=== PATIENT | female | born 1980 | race Caucasian/White ===

== ENCOUNTER → 2017-10-24 | Outpatient (CLI) | payer OTHER ==
[2017-10-24 11:20] LABS: Basophils # (A) 0.1 k/uL (0-0.2); Basophils % (A) 1 %; Eosinophils # (A) 0.2 k/uL (0-0.7); Eosinophils % (A) 3 %; HCT 38.7 % (34.0-46.0); HGB 12.3 gm/dL (11.4-16.0); Lymphocytes # (A) 1.9 k/uL (1.0-4.8); Lymphocytes % (A) 24 %; MCH 29.6 pg (25.0-35.0); MCHC 31.9 g/dL (31.0-37.0); MCV 92.7 fL (80.0-100.0); Mean Platelet Volume 6.4; Monocytes # (A) 0.5 k/uL (0-1.0); Monocytes % (A) 7 %; Neutrophils # (A) 5.2 k/uL (1.3-7.7); Neutrophils % (A) 65 %; Platelet Count 279 k/uL (150-450); RBC 4.18 m/uL (3.80-5.40); RDW 12.5 % (11.5-15.5)
[2017-10-24 11:26] LABS: ALT 29 U/L (9-52); AST 20 U/L (14-36); Albumin 4.3 g/dL (3.5-5.0); Alkaline Phosphatase 40 U/L (38-126); Anion Gap 10 mmol/L; Blood Urea Nitrogen 7 mg/dL (7-17); Calcium 9.6 mg/dL (8.4-10.2); Carbon Dioxide 31 mmol/L (22-30); Chloride 102 mmol/L (98-107); Cholesterol 176 mg/dL (<200); Creatine Kinase 53 U/L (30-135); Glucose 89 mg/dL (74-99); HDL Cholesterol 39 mg/dL (40-60); LDL Cholesterol,Calculated 120 mg/dL (0-99); Potassium 4.2 mmol/L (3.5-5.1); Sodium 143 mmol/L (137-145); Total Bilirubin 0.6 mg/dL (0.2-1.3); Total Protein 7.1 g/dL (6.3-8.2); Triglycerides 83 mg/dL (<150)
[2017-10-24 11:40] LABS: T4, Free (Free Thyroxine) 0.94 ng/dL (0.78-2.19)
[2017-10-24 15:26] LABS: Vitamin D 25 Hydroxy 32.4 ng/mL (30.0-100.0)
== END | disposition home or self-care (01) ==
LOC: LABWHC1 10:36
PROVIDERS: ATTEND Family Medicine
DX: Z00.00 Encounter for general adult medical examination without abnormal findings (principal); E55.9 Vitamin D deficiency, unspecified; M70.61 Trochanteric bursitis, right hip; Z13.220 Encounter for screening for lipoid disorders; Z68.22 Body mass index [BMI] 22.0-22.9, adult
CPT/HCPCS: 36415; 80053; 80061; 82306; 82550; 82607; 84439; 84443; 85025

== ENCOUNTER → 2018-01-17 | Outpatient (CLI) | payer OTHER ==
--- NOTE | 2018-01-18 08:45 | MM ---
Reason for exam: additional evaluation requested from prior study. Last mammogram was performed 1 year and 4 months ago. History: Patient history of other cancer. Family history of breast cancer in mother at age 63. Took hormonal contraceptives for 1 year beginning at age 36. Physical Findings: Nurse Summary: less than 0.5cm nodule in the left breast at 2 o'clock (nurse kp). MG 3D Diag Mammo W/Cad SANDRINE Bilateral CC and MLO view(s) were taken. Prior study comparison: September 09, 2016, bilateral MG screening mammo w CAD. July 01, 2015, bilateral MG screening mammo w CAD. The breast tissue is heterogeneously dense. This may lower the sensitivity of mammography. There is a left breast retroareolar low density mass, 6mm. No suspicious abnormality in the right breast. These results were verbally communicated with the patient and result sheet given to the patient on 01/17/18. ASSESSMENT: Incomplete: need additional imaging evaluation, BI-RAD 0 RECOMMENDATION: Ultrasound of the left breast.
--- NOTE | 2018-01-18 08:47 | USB ---
Reason for exam: additional evaluation requested from abnormal screening. History: Patient history of other cancer. Family history of breast cancer in mother at age 63. Took hormonal contraceptives for 1 year beginning at age 36. US Breast LT Left complete breast ultrasound includes all four quadrants, the retroareolar region and axilla. Finding demonstrates a 0.3 x 0.2 x 0.3cm cystic lesion at 2 o'clock corresponds to mammographic finding and a 0.3 x 0.3 x 0.3cm cystic lesion at 2 o'clock increased through transmission, anechoic. These results were verbally communicated with the patient and result sheet given to the patient on 01/17/18. ASSESSMENT: Benign, BI-RAD 2 RECOMMENDATION: Routine screening mammogram of both breasts in 1 year.
== END | disposition home or self-care (01) ==
LOC: RADMAMWWP 13:40
PROVIDERS: ATTEND Family Medicine
DX: N63.20 Unspecified lump in the left breast, unspecified quadrant (principal)
CPT/HCPCS: 77066; 76641; G0279; 77062

== ENCOUNTER → 2018-02-26 | Outpatient (CLI) | payer OTHER ==
--- NOTE | 2018-02-27 06:14 | CT ---
EXAMINATION TYPE: CT abdomen pelvis w con DATE OF EXAM: 02/26/2018 HISTORY: Patient complains of LUQ pain and bilateral posterior pelvic pain per patient. Irritable bow el syndrome with constipation per order CT DLP: 820mGycm Automated Exposure Control for Dose Reduction was Utilized. CONTRAST: CT scan of the abdomen and pelvis is performed with IV Contrast, patient injected with 100 mL of Isov ue 300. COMPARISON: None. FINDINGS: LUNG BASES: No significant abnormality is appreciated. LIVER/GB: Liver is upper limits of normal in size. PANCREAS: No significant abnormality is seen. SPLEEN: No significant abnormality is seen. ADRENALS: No significant abnormality is seen. KIDNEYS: There is circumaortic left renal vein which is normal variant. BOWEL: Oral contrast reaches level of the mid to distal transverse colon. Patient has very little int ra-abdominal fat making evaluation suboptimal. There is no suspicious small or large bowel dilatation . No areas of abnormal wall thickening or clearly seen. Slightly low-lying cecum into right pelvis is present. UTERUS/ADNEXA: There is heterogeneous anteverted uterus. Posterior to uterus right ovary there is 3.7 x 3.3 cm oval well-defined low dense lesion favoring simple ovarian cyst. This can be better evaluat ed with pelvic ultrasound if desired. Scattered pelvic phleboliths are present. Left ovary is not enl arged on axial image 63. LYMPH NODES: No greater than 1cm abdominal or pelvic lymph nodes are appreciated. OSSEOUS STRUCTURES: Small posterior disc herniations are seen in L3-L4 through the L5-S1 levels on sa gittal image 29 there is mild to moderate disc space narrowing L5-S1 level. There is prominent Schmor l node anterior superior endplate. OTHER: No significant additional abnormality is seen. IMPRESSION: 1. No bowel obstruction is seen. No significant acute finding is seen to account for patient's clinic al symptoms. No obvious colitis. 2. Incidental 3.7 cm right ovarian lesion favoring simple cyst, consider pelvic ultrasound to further evaluate and characterize.
== END | disposition home or self-care (01) ==
LOC: RADCTMAIN 17:47
PROVIDERS: ATTEND Family Medicine
DX: K58.1 Irritable bowel syndrome with constipation (principal)
CPT/HCPCS: 74177; Q9967

== ENCOUNTER → 2018-08-13 | Outpatient (CLI) | payer OTHER ==
--- NOTE | 2018-08-13 15:29 | MR ---
EXAMINATION TYPE: MR lumbar spine wo con DATE OF EXAM: 08/13/2018 COMPARISON: CT abdomen pelvis 02/26/2018 HISTORY: Back pain TECHNIQUE: Multiplanar, multisequence images of the lumbar spine were acquired. L1-L2: Posterior disc bulge causes mild anterior mass effect on the thecal sac. No significant centra l stenosis or foraminal encroachment. L2-L3: Normal disc appearance without desiccation. No herniation, protrusion or disc bulging. No ca nal stenosis is present. Foramina are patent bilaterally. L3-L4: Right posterior paracentral disc protrusion causes minimal anterolateral mass effect on the th ecal sac. No significant foraminal encroachment or central stenosis. Mild facet arthropathy. L4-L5: Broad-based posterior disc bulge causes mild anterior mass effect on the thecal sac. No signif icant central stenosis or foraminal encroachment. Facet arthropathy with hypertrophy of the ligamentu m flavum causes some posterior lateral mass effect on the thecal sac. L5-S1: Circumferential extension of endplate disc complex encroaches upon the foramina greater on the right. Posterior extension of endplate disc complex is noted, there is a right posterior paracentral small disc herniation causing some minimal anterolateral mass effect on the thecal sac. No significa nt central stenosis. Lumbar segments are intact. No paraspinal masses are identified. Conus medullaris has a normal appe arance. Loss of disc height and signal present at the intervertebral levels demonstrate L5-S1, L1-2, there is endplate discogenic marrow signal change present, Schmorl's node present at the superior end plate of L2. IMPRESSION: Degenerative disc disease, facet arthropathy. Additional findings above.
== END ==
LOC: RADMRIMAIN 12:32
PROVIDERS: ATTEND Family Medicine
DX: M51.27 Other intervertebral disc displacement, lumbosacral region (principal); M51.36 Other intervertebral disc degeneration, lumbar region; M46.96 Unspecified inflammatory spondylopathy, lumbar region; M51.46 Schmorl's nodes, lumbar region
CPT/HCPCS: 72148

== ENCOUNTER → 2018-11-13 | Outpatient (CLI) | payer OTHER ==
--- NOTE | 2018-11-13 16:31 | US ---
EXAMINATION TYPE: US thyroid st tissue head/neck DATE OF EXAM: 11/13/2018 COMPARISON: NONE CLINICAL HISTORY: 38-year-old female E04.9 Nontoxic goiter, unspecified;Left neck fullness TECHNIQUE: Multiple sonographic images of the thyroid gland are obtained. FINDINGS: GLAND SIZE: Right Lobe: 5.5 x 1.7 x 1.5 cm Overall Parenchyma: homogenous Left Lobe: 4.7 x 2.1 x 1.3 cm Overall Parenchyma: homogeneous Isthmus Thickness: 0.4 cm NODULES RIGHT: # of nodules measured on right: 3 1. 0.4 X 0.4 x 0.3 cm hypoechoic mixed nodule at the upper pole with well-defined margins. This no dule is wider than tall and shows no intranodular vascularity. 2. 0.3 X 0.4 x 0.2 cm hypoechoic mixed nodule at the mid pole with well-defined margins.. This nodu le is wider than tall and shows no intranodular vascularity. 3. 0.7 X 0.6 x 0.3 cm hypoechoic mixed nodule at the lower pole with well-defined margins (this jannie ears cystic, possible colloid cyst). This nodule is wider than tall and shows no intranodular vascula rity. LEFT: # of nodules measured on left: 1 of 2 cysts 1. 0.3 X 0.2 x 0.1 cm hypoechoic cystic nodule at the mid pole with well-defined margins. This no dule is wider than tall and shows no intranodular vascularity. ISTHMUS: # of nodules measured in the isthmus: 0 Bilateral neck scanned: no evidence of lymphadenopathy. IMPRESSION: The right lobe is mildly enlarged at 5.5 cm and contains a few small nodules measuring up to 7 mm. Th e left lobe is upper limits of normal in size (4.7 cm) with 2 small cysts. Correlate for possible mul tinodular goiter.
== END ==
LOC: RADUSWWP 12:15
PROVIDERS: ATTEND Family Medicine
DX: E04.2 Nontoxic multinodular goiter (principal)
CPT/HCPCS: 76536

== ENCOUNTER → 2019-01-28 | Outpatient (CLI) | payer OTHER ==
--- NOTE | 2019-01-29 11:15 | MM ---
Reason for exam: additional evaluation requested from prior study. Last mammogram was performed 1 year ago. History: Patient history of other cancer. Family history of breast cancer in mother at age 63, breast cancer in maternal grandmother, and breast cancer in aunt. Took hormonal contraceptives for 1 year beginning at age 36. Physical Findings: Nurse Summary: 1.5cm nodule in the left breast at 1 o'clock (nurse pawan). MG 3D Diag Mammo W/Cad SANDRINE Bilateral CC and MLO view(s) were taken. Prior study comparison: January 17, 2018, bilateral MG 3d diag mammo w/cad SAN[facility]INE. September 09, 2016, bilateral MG screening mammo w CAD. The breast tissue is extremely dense which could obscure a lesion on mammography. No significant new findings when compared with previous films. These results were verbally communicated with the patient and result sheet given to the patient on 01/28/19. ASSESSMENT: Benign, BI-RAD 2 RECOMMENDATION: Routine screening mammogram of both breasts in 1 year.
--- NOTE | 2019-01-29 11:29 | USB ---
Reason for exam: additional evaluation requested from prior study. History: Patient history of other cancer. Family history of breast cancer in mother at age 63, breast cancer in maternal grandmother, and breast cancer in aunt. Took hormonal contraceptives for 1 year beginning at age 36. US Breast LT Left complete breast ultrasound includes all four quadrants, the retroareolar region and axilla. Finding demonstrates no cystic or solid lesion seen. These results were verbally communicated with the patient and result sheet given to the patient on 01/28/19. ASSESSMENT: Benign, BI-RAD 2 RECOMMENDATION: Routine screening mammogram of both breasts in 1 year. Manage patient on a clinical basis.
== END | disposition home or self-care (01) ==
LOC: RADMAMWWP 13:41
PROVIDERS: ATTEND Family Medicine
DX: N60.02 Solitary cyst of left breast (principal); Z80.3 Family history of malignant neoplasm of breast
CPT/HCPCS: 77066; 76641; G0279; 77062

== ENCOUNTER → 2020-03-20 | Outpatient (CLI) | payer OTHER ==
--- NOTE | 2020-03-20 09:03 | MM ---
Reason for exam: additional evaluation requested from prior study. Last mammogram was performed 1 year and 2 months ago. History: Patient has history of other cancer at age 29. Family history of breast cancer in mother at age 63. Took hormonal contraceptives for 1 year beginning at age 36. Physical Findings: Nurse Summary: 1 x 0.5cm nodule in the left breast at 2 o'clock (nurse ts). MG 3D Diag Mammo W/Cad SANDRINE Bilateral CC and MLO view(s) were taken. Prior study comparison: January 28, 2019, bilateral MG 3d diag mammo w/cad [facility]. January 17, 2018, bilateral MG 3d diag mammo w/cad SAN[facility]. The breast tissue is extremely dense which could obscure a lesion on mammography. Nodularity at the site of clinical concern. These results were verbally communicated with the patient and result sheet given to the patient on 03/20/20. ASSESSMENT: Incomplete: need additional imaging evaluation, BI-RAD 0 RECOMMENDATION: Ultrasound of the left breast. Manage patient on a clinical basis.
--- NOTE | 2020-03-20 09:04 | USB ---
Reason for exam: additional evaluation requested from abnormal screening. History: Patient has history of other cancer at age 29. Family history of breast cancer in mother at age 63. Took hormonal contraceptives for 1 year beginning at age 36. US Breast LT Left complete breast ultrasound includes all four quadrants, the retroareolar region and axilla. Finding demonstrates no cystic or solid lesion seen. These results were verbally communicated with the patient and result sheet given to the patient on 03/20/20. ASSESSMENT: Negative, BI-RAD 1 RECOMMENDATION: Routine screening mammogram of both breasts in 1 year. Manage patient on a clinical basis.
== END | disposition home or self-care (01) ==
LOC: RADMAMWWP 07:38
PROVIDERS: ATTEND Family Medicine
DX: R92.8 Other abnormal and inconclusive findings on diagnostic imaging of breast (principal); N63.20 Unspecified lump in the left breast, unspecified quadrant; N60.02 Solitary cyst of left breast
CPT/HCPCS: 77066; 76641; G0279; 77062

== ENCOUNTER → 2020-06-17 | Outpatient (CLI) | payer OTHER ==
--- NOTE | 2020-06-17 14:15 | US ---
EXAMINATION TYPE: US thyroid st tissue head/neck DATE OF EXAM: 06/17/2020 COMPARISON: CLINICAL HISTORY: E04.9 NONTOXIC GOITER. follow up thyroid nodules. GLAND SIZE: Right Lobe: 5.4 x 1.9 x 1.6 cm Overall Parenchyma: heterogenous Left Lobe: 5.0 x 1.6 x 1.2 cm Overall Parenchyma: heterogeneous Isthmus Thickness: 0.3 cm NODULES RIGHT: # of nodules measured on right: 2 1. Previously seen nodule in upper pole not visualized on todays exam 2. 0.5 X 0.4 x 0.4 cm mixed nodule at the mid pole with well-defined margins. This nodule is tall a s wide and shows no intranodular vascularity. Prior size: 0.3 x 0.4 x 0.2 cm 3. 0.7 X 0.6 x 0.3 cm mixed nodule at the lower pole with well-defined margins. This nodule is wide r than tall and shows no intranodular vascularity. Prior size: 0.7 x 0.6 x 0.3 cm LEFT: # of nodules measured on left: 0 Previously seen cysts not visualized on todays exam ISTHMUS: # of nodules measured in the isthmus: 0 Bilateral neck scanned, no evidence of lymphadenopathy. IMPRESSION: Nonspecific thyroid nodularity is noted.
== END | disposition home or self-care (01) ==
LOC: RADUSWWP 13:42
PROVIDERS: ATTEND Family Medicine
DX: E04.1 Nontoxic single thyroid nodule (principal)
CPT/HCPCS: 76536

== ENCOUNTER → 2021-05-05 | Outpatient (CLI) | payer OTHER ==
--- NOTE | 2021-05-10 11:22 | MM ---
Reason for exam: screening (asymptomatic). Last mammogram was performed 1 year and 1 month ago. History: Patient has history of other cancer at age 29. Family history of breast cancer in mother at age 63. Took hormonal contraceptives for 1 year beginning at age 36. Physical Findings: A clinical breast exam by your physician is recommended on an annual basis and results should be correlated with mammographic findings. MG 3D Screening Mammo W/Cad Bilateral CC and MLO view(s) were taken. Prior study comparison: March 20, 2020, bilateral MG 3d diag mammo w/cad SANDR[facility]. January 28, 2019, bilateral MG 3d diag mammo w/cad SANDRINE. The breast tissue is extremely dense which could obscure a lesion on mammography. No significant changes when compared with prior studies. ASSESSMENT: Negative, BI-RAD 1 RECOMMENDATION: Routine screening mammogram of both breasts in 1 year. Patient should continue monthly self breast exams. A negative report should not preclude additional follow up of suspicious palpable abnormalities.
== END | disposition home or self-care (01) ==
LOC: RADMAMWWP 14:26
PROVIDERS: ATTEND Family Medicine
DX: Z12.31 Encounter for screening mammogram for malignant neoplasm of breast (principal); Z79.3 Long term (current) use of hormonal contraceptives; Z85.9 Personal history of malignant neoplasm, unspecified; Z80.3 Family history of malignant neoplasm of breast
CPT/HCPCS: 77063; 77067

== ENCOUNTER → 2021-10-18 | Outpatient (CLI) | payer OTHER ==
--- NOTE | 2021-10-19 08:40 | US ---
EXAMINATION TYPE: US thyroid st tissue head/neck DATE OF EXAM: 10/18/2021 COMPARISON: 06/17/2020 CLINICAL HISTORY: E04.9 GOITER. GLAND SIZE: Right Lobe: 5.5 x 1.2 x 1.8 cm Overall Parenchyma: heterogenous Left Lobe: 4.8 x 1.3 x 1.3 cm Overall Parenchyma: heterogeneous Isthmus Thickness: 0.35 cm NODULES RIGHT: # of nodules measured on right: 2 1. 0.6 X 0.3 x 0.5 cm, mid mid, solid or almost completely solid, hypoechoic nodule, which is wider than tall, with smooth margins, without echogenic foci. Prior size: 0.5 x 0.4 x 0.4 cm 2. 0.8 X 0.4 x 0.6 cm, lower lateral, mixed cystic and solid, hypoechoic nodule, which is wider dick n tall, with smooth margins, without echogenic foci. Prior size: 0.7 x 0.6 x 0.3 cm LEFT: # of nodules measured on left: 0 ISTHMUS: # of nodules measured in the isthmus: 0 Bilateral neck scanned, no evidence of lymphadenopathy. IMPRESSION: Subcentimeter thyroid nodules right lobe of the gland 2017 ACR TI-RADS LEVEL: TR 3, only mildly suspicious, follow-up can be performed in 2 years *Highest TI-RADS level nodule reported
== END | disposition home or self-care (01) ==
LOC: RADUSWWP 16:59
PROVIDERS: ATTEND Family Medicine
DX: E04.2 Nontoxic multinodular goiter (principal)
CPT/HCPCS: 76536

== ENCOUNTER → 2022-05-31 | Outpatient (CLI) | payer OTHER ==
--- NOTE | 2022-06-01 16:56 | MM ---
Reason for Exam: Screening (asymptomatic). Last mammogram was performed 1 year(s) and 1 month(s) ago. Patient History: Menarche at age 14. First Full-Term at age 18. Other cancer, age 29. Hormonal Contraceptives for 1 year from age 36 until age 37. Mother had breast cancer, age 63. Risk Values: Elizabet 5 year model risk: 1.2%. NCI Lifetime model risk: 16.4%. Prior Study Comparison: 01/28/2019 Bilateral Diagnostic Mammogram, [facility]. 03/20/2020 Bilateral Diagnostic Mammogram, [facility]. 05/05/2021 Bilateral Screening Mammogram, [facility]. Tissue Density: The breast tissue is extremely dense which could obscure a lesion on mammography. Findings: Analyzed By CAD. Pattern appears symmetrical and stable. No significant interval change is evident. Couple benign punctate calcifications are within the bilateral breasts. No suspicious groups of microcalcifications, spiculated or lobular masses, architectural distortion or other secondary signs of malignancy are mammographically apparent. Overall Assessment: Benign, BI-RAD 2 Management: Screening Mammogram of both breasts in 1 year. A negative mammogram report should not preclude additional follow up of suspicious palpable abnormalities. Patient should continue monthly self breast exam. A clinical breast exam by your physician is recommended on an annual basis and results should be correlated with mammographic findings. Electronically signed and approved by: Greg Dailey D.O. Radiologis
== END | disposition home or self-care (01) ==
LOC: RADMAMWWP 14:44
PROVIDERS: ATTEND Family Medicine
DX: Z12.31 Encounter for screening mammogram for malignant neoplasm of breast (principal); Z80.3 Family history of malignant neoplasm of breast
CPT/HCPCS: 77063; 77067

== ENCOUNTER → 2023-07-19 | Outpatient (CLI) | payer OTHER ==
--- NOTE | 2023-07-20 08:28 | MM ---
Reason for Exam: Screening (asymptomatic). Last mammogram was performed 1 year(s) and 2 month(s) ago. Patient History: Menarche at age 14. First Full-Term at age 18. Other cancer, age 29. Hormonal Contraceptives for 1 year from age 36 until age 37. Mother had breast cancer, age 63. Last menstrual period: 07/01/2023 Risk Values: Elizabet 5 year model risk: 1.3%. NCI Lifetime model risk: 16.3%. Prior Study Comparison: 03/20/2020 Bilateral Diagnostic Mammogram, [facility]. 05/05/2021 Bilateral Screening Mammogram, [facility]. 05/31/2022 Bilateral MG 3D screening mammo w/cad, [facility]. Tissue Density: The breast tissue is extremely dense which could obscure a lesion on mammography. Findings: Analyzed By CAD. There is no suspicious group of microcalcifications or new suspicious mass. Overall Assessment: Negative, BI-RAD 1 Management: Screening Mammogram of both breasts in [address] [facility] will attempt to contact patient to return for supplemental views and ultrasound if indicated. Patient should continue monthly self-breast exams. A clinical breast exam by your physician is recommended on an annual basis. This exam should not preclude additional follow-up of suspicious palpable abnormalities. Note on Elizabet scores and lifetime risk: 1. A Elizabet score greater than 3% is considered moderate risk. If this is the case, consider specialist referral to assess eligibility for a risk reducing agent. 2. If overall lifetime risk for the development of breast cancer is 20% or higher, the patient may qualify for future screening with alternating mammogram and breast MRI. Electronically signed and approved by: Toño Sam DO
== END | disposition home or self-care (01) ==
LOC: RADMAMWWP 16:27
PROVIDERS: ATTEND Family Medicine
DX: Z12.31 Encounter for screening mammogram for malignant neoplasm of breast (principal); Z80.3 Family history of malignant neoplasm of breast
CPT/HCPCS: 77063; 77067

== ENCOUNTER → 2024-08-05 | Outpatient (CLI) | payer OTHER ==
--- NOTE | 2024-08-06 18:56 | MM ---
Reason for Exam: Screening (asymptomatic). Last screening mammogram was performed 12 month(s) ago. Patient History: Menarche at age 14. First Full-Term at age 18. Other cancer, age 29. Hormonal Contraceptives for 1 year from age 36 until age 37. Mother had breast cancer, age 63. Risk Values: Elizabet 5 year model risk: 1.4%. NCI Lifetime model risk: 16.1%. Prior Study Comparison: 05/05/2021 Bilateral Screening Mammogram, [facility]. 05/31/2022 Bilateral MG 3D screening mammo w/cad, [facility]. 07/19/2023 Bilateral MG 3D screening mammo w/cad, [facility]. Tissue Density: The breasts are extremely dense, which lowers the sensitivity of mammography. Findings: Analyzed By CAD. Unchanged centrally located global asymmetry posterior right CC view. There is no suspicious group of microcalcifications or new suspicious mass in either breast. Overall Assessment: Benign, BI-RAD 2 Management: Screening Mammogram of both breasts in 1 year. Given patient's extremely dense breast tissue, consideration can be given to supplementary screening with breast ultrasound. Patient should continue monthly self-breast exams. A clinical breast exam by your physician is recommended on an annual basis. This exam should not preclude additional follow-up of suspicious palpable abnormalities. Note on Elizabet scores and lifetime risk: 1. A Elizabet score greater than 3% is considered moderate risk. If this is the case, consider specialist referral to assess eligibility for a risk reducing agent. 2. If overall lifetime risk for the development of breast cancer is 20% or higher, the patient may qualify for future screening with alternating mammogram and breast MRI. [facility], , 08/06/2024 6:53 PM. Electronically signed and approved by: Sasha Mak M.D. Radiologist
== END | disposition home or self-care (01) ==
LOC: RADMAMWWP 08:53
PROVIDERS: ATTEND Family Medicine
DX: Z12.31 Encounter for screening mammogram for malignant neoplasm of breast (principal); Z80.3 Family history of malignant neoplasm of breast; R92.343 Mammographic extreme density, bilateral breasts
CPT/HCPCS: 77063; 77067

== ENCOUNTER → 2024-09-30 | Outpatient (CLI) | payer OTHER ==
--- NOTE | 2024-09-30 14:25 | US ---
EXAMINATION TYPE: US thyroid st tissue head/neck DATE OF EXAM: 09/30/2024 COMPARISON: most recent: 10/18/21 CLINICAL INDICATION: Female, 43 years old with history of E04.1 THRYOID NODULE; thyroid nodule TECHNIQUE: Grayscale and color Doppler imaging of the thyroid gland. FINDINGS: GLAND SIZE: Right Lobe: 5.7 x 1.7 x 1.6 cm Overall Parenchyma: homogeneous Left Lobe: 4.6 x 1.4 x 1.1 cm Overall Parenchyma: homogeneous Isthmus Thickness: 0.3 cm NODULES RIGHT: # of nodules measured on right: 2 1. 0.6 X 0.5 x 0.5 cm, mid mid, mixed cystic and solid, hypoechoic nodule, which is wider than tall , with lobulated or irregular margins, without echogenic foci. Prior size: 0.8 x 0.4 x 0.6 cm 2. 0.4 X 0.4 x 0.3 cm, mid mid, mixed cystic and solid, hypoechoic nodule, which is wider than tall , with lobulated or irregular margins, without echogenic foci. Prior size: 0.6 x 0.3 x 0.5 cm LEFT: # of nodules measured on left: 0 ISTHMUS: # of nodules measured in the isthmus: 0 Bilateral neck scanned. Lymph node seen superior to the left lobe of thyroid measuring 2.0 x 1.3 x 0. 7cm . IMPRESSION: 1. Stable thyroidomegaly. Stable subcentimeter thyroid nodules too small to characterize. 2. Nonspecific lymph node along the upper margin of the left thyroid measuring 2 x 1.3 x 0.7 cm. Nando elate clinically. Consider short-term follow-up 1 month ultrasound to confirm stability or reduction in size. 2017 ACR TI-RADS LEVEL: TR-RADS 2 - Not Suspicious: No FNA *Highest TI-RADS level nodule reported [email or web address] [facility], , 09/30/2024 2:22 PM
== END | disposition home or self-care (01) ==
LOC: RADUSWWP 13:22
PROVIDERS: ATTEND Family Medicine
DX: E04.2 Nontoxic multinodular goiter (principal)
CPT/HCPCS: 76536